=== PATIENT | female | born 1960 | race Caucasian/White ===

== ENCOUNTER 2018-03-26 11:51 | Inpatient (IN) | payer OTHER ==
[~2018-03-26] VITALS: Ht 157.5 cm; Wt 54.4 kg
--- NOTE | 2018-03-26 18:18 | NUR ---
PRE ADMISSION Pt 57 y/o female came from home. Pt alert and oriented to name, place, and time. Perrla. Skin warm and dry to touch. Respirations even and unlabored. Pt intoxicated with slurred speech noted. Pt disheveled with hair uncombed. Pt anxious and was tearful during pre-assessment. Pt observed tapping foot and with poor eye contact, occasionally staring the floor. Pt states drinks etoh, switching between wine, beer, and vodka daily for 8 months. Pt states last drink was vodka 2 shots this morning. Initial ciwa deferred as pt is intoxicated. IM=931/76 P=83 R=17 T=98.6 O2=96%@RA. Pt states has attempted twice to quit drinking etoh, but unable to maintain sobriety. Pt states her is is the one to blame for her continued alcoholism stating, " he just keeps filling the house with all these stuff (alcohol) to drink. I could never escape it!.", with episodes of crying. Explained unit rules to pt with acknowledgment. Addendum: 03/26/18 at 1842 by SKIP BAUTISTA RN additional Pt states drinks between wine, beer, and vodka depending on what's available. Pt states drinks wine 3/4 of large bottle every other day for 8 months and last time was unknown amount on 03/25/2018. Pt states drinks beer 12 pack every other day for 8 months and last time was a 12 pack on 03/25/2018. Pt states drinks vodka 3-4 shots weekly for 8 months and last time was 2 shots this morning 03/26/2018. Pt states first drink was when she was 18 y/o.
--- NOTE | 2018-03-26 18:49 | NUR ---
ADMISSION NOTE: Patient is a 57 year old female admitted to [facility] on 03/26/2018 at 1949 for ETOH (Red/White Wine, Beer, Vodka) withdrawal. Patient is ambulatory with steady gait. The patient is alert and oriented x4. Speech is soft and clear. Height: 5'2". Weight: 120 lb by standing scale. VS: T: 98.6, BP: 113/76, HR 83, RR 17, RA O2SAT: 96%. Headache: "6". Patient noted to be disheveled, unkempt and with uncombed hair. Patient appears intoxicated. Patient reports NKA, is on Regular Diet, Full Code, is on Fall and Seizures Precautions. Patient denies history of withdrawal-induced seizures. PMH: Anxiety, Depression. The patient denies SI/HI. Skin check done, noted intact, warm, and dry to touch. Patient reports, "I don't have Primary Care Physician and Psychiatrist. UDS and Urine HCG, Qual test provided. Blood Labs were drawn. Respirations even and unlabored. Lung Sounds are clear throughout. Patient denies SOB, cough, and chest pain. Bowel sounds active in all four quadrants. Patient stated that she starting using Alcohol since every day since 1977. She reports, that "I have longest sober period 12 years: [id number]. Then, I have been 6 months sober in 2016 , and now I am drinking every day during last 8 months". SUBSTANCE USING HISTORY: 1. BEER 12 CANS/DAILY. LAST USED 12 CANS ON 03/25/2018. 2. WINE 3/4 BOTTLE/DAILY. LAST USED 3/4 BOTTLE OF RED WINE ON 03/25/2018. 3. VODKA 3-4 SHOTS/WEEKLY. LAST USED 2 SHOTS ON 03/25/2018 AT AM. TREATMENT/DETOX HISTORY: 1. "[facility]", [place], RESIDENTIAL ON 01/2017 FOR 30 DAYS. THE PATIENT REPORTS 6 MONTHS WAS ABLE TO STAY SOBER. 2. "[facility]", [place], RESIDENTIAL FOR 21 DAYS ON 1989. THE PATIENT REPORTS 12 YEARS WAS ABLE TO STAY SOBER. THE PATIENT REPORTS BARRIERS FOR GETTING/STAYING SOBER : "MY . BECAUSE I AM AN ALCOHOLIC". Patient verbalized, " I want to be sober, and it will be different this time because I am stronger this time, and I just don't want it anymore ". Patient would like to continue to residential treatment after detox. Patient also reports "I never smoking". Patient not brought her home medications. Education for smoking cessation provided to patient. Patient oriented on the rules and policies of the unit, directed to his room and instructed on the use of the call light. Encouraged fluids as tolerated. Encouraged to attend activities groups in the morning. All needs met. Safety measures on place. Call light within reach, bed locked in lowest position, padded rails up bilaterally. Will continue to monitor closely.
[2018-03-26 19:00] VITALS: BP 113/76
[2018-03-26 20:00] VITALS: BP 108/68
[2018-03-26] MEDS ORDERED: ACETAMINOPHEN 325 MG TABLET PO PRN (20:15)
[2018-03-26] MEDS ORDERED: LOPERAMIDE HCL 2 MG CAPSULE PO PRN ×2 (20:15)
[2018-03-26] MEDS ORDERED: THIAMINE HCL 200 MG/2 ML VIAL IM ONE (20:15)
[2018-03-26] MEDS ORDERED: MAGNESIUM HYDROXIDE 30 ML LIQUID UDC PO PRN (20:15)
[2018-03-26] MEDS ORDERED: LORAZEPAM 2 MG/1 ML VIAL IM PRN (20:15)
[2018-03-26] MEDS ORDERED: MAG HYDROX/AL HYDROX/SIMETH 30 ML LIQUID UDC PO PRN (20:15)
[2018-03-26] MEDS ORDERED: LORAZEPAM 1 MG TABLET PO PRN (20:15)
[2018-03-26] MEDS ORDERED: HYDROXYZINE PAMOATE 25 MG CAPSULE PO PRN (20:15)
[2018-03-26] MEDS ORDERED: ONDANSETRON 4 MG/2 ML VIAL IM PRN (20:15)
[2018-03-26 20:47] LABS: *URINE HCG, QUAL NEGATIVE (NEGATIVE)
[2018-03-26 21:07] LABS: *AMPHETAMINE, URINE NEGATIVE (NEGATIVE); *BARBITURATE, URINE NEGATIVE (NEGATIVE); *CANNABINOID, URINE NEGATIVE (NEGATIVE); *COCCAINE, URINE NEGATIVE (NEGATIVE); *OPIATE, URINE NEGATIVE (NEGATIVE); *PHENCYCLIDINE SCREEN,URINE NEGATIVE (NEGATIVE)
[2018-03-26 21:26] LABS: BASOPHILS % (AUTO) 0.5 % (0.0-2.0); EOSINOPHILS # (AUTO) 0.1 K/uL (0.0-0.7); EOSINOPHILS % (AUTO) 1.3 % (0.0-7.0); HEMATOCRIT 39.7 % (31.2-41.9); HEMOGLOBIN 13.6 g/dL (10.9-14.3); LYMPHOCYTES # (AUTO) 3.6 K/uL (20.0-40.0); MEAN CORPUSCULAR HEMOGLOBIN 32.8 uug (24.7-32.8); MEAN CORPUSCULAR HGB CONC 34 g/dL (32.3-35.6); MEAN CORPUSCULAR VOLUME 95.7 fL (75.5-95.3); MONOCYTES # (AUTO) 0.4 K/uL (2.0-10.0); MONOCYTES % (AUTO) 6.5 % (0.0-11.0); NEUTROPHILS # (AUTO) 2.1 K/uL (1.8-8.9); NEUTROPHILS % (AUTO) 33.7 % (38.5-71.5); PLATELET COUNT (AUTO) 263 K/uL (179-408); RED BLOOD CELL COUNT(AUTO) 4.14 MIL/uL (3.63-4.92); WHITE BLOOD COUNT (AUTO) 6.1 K/uL (3.8-11.8)
[2018-03-26 21:44] LABS: BILIRUBIN,TOTAL 0.5 mg/dL (0.2-1.0); CREATININE 0.8 mg/dL (0.6-1.3)
[2018-03-26 21:54] LABS: THYROID STIMULATING HORMONE 2.468 mIU/mL (0.358-3.740)
[2018-03-27] VITALS: BP 95/58
[2018-03-27] MEDS: LORAZEPAM 1 MG TABLET PO PRN ×2 (03:30→09:30)
--- NOTE | 2018-03-27 03:30 | NUR ---
PRN ATIVAN 2 MG PO AND PRN ZOFRAN 4 MG SL ADMINISTRATION. PRN Ativan 2 mg PO administrated as ordered for CIWA=18, and PRN Zofran 4mg SL administrated as ordered for nausea. Patient tolerated well. Safe and calm environment with minimized noises was provided. All needs met. Safety measures in the place: Call light within reach, bed locked in the lowest position, padded rails up x2. Will continue to monitor closely.
[2018-03-27] MEDS: ONDANSETRON ODT 4 MG TAB.RAPDIS SL PRN ×3 (03:31→15:10)
[2018-03-27 04:00] VITALS: BP 127/81
--- NOTE | 2018-03-27 04:31 | NUR ---
PRN ATIVAN 2 MG PO AND PRN ZOFRAN SL RE-ASSESSMENT. Patient is sleeping. RR:16. Respirations are even and unlabored. PRN Ativan 2 mg PO administrated as ordered for CIWA=18 at 0330, and PRN Zofran 4 mg SL administrated for nausea at 0330 was effective. Safe and calm environment with minimized noises was provided. All needs met. Safety measures on place. Call light within reach, bed in lowest position locked, padded rails up bilaterally. Will continue to monitor closely.
--- NOTE | 2018-03-27 07:18 | NUR ---
END OF SHIFT NOTE: Endorsed patient is a 57 year old female admitted to [facility] on 03/26/2018 at 1949 for ETOH (Red/White Wine, Beer, Vodka) withdrawal. 5 day Ativan Taper ordered. Patient is ambulatory with steady gait. Patient is alert and oriented x4. Speech is soft and clear. Patient reports NKA, is on Regular Diet, Full Code, is on Fall and Seizures Precautions. Patient denies history of withdrawal-induced seizures. PMH: Anxiety, Depression. The patient denies SI/HI. She appears easy overwhelmed, worry, and sad. The mood and affect are labile and anxious. Emotional support and reassuring provided. Encouraged to expresses her feelings. Relaxation Techniques: Deep breathing exercises, guided imagery, and visualization. Patient noted to be disheveled, unkempt and with uncombed hair. First withdrawal S/S noted at 0330. Withdrawal symptoms will be closely monitored. CIWA=18 at 0330: The patient presented with anxiety, agitation, nervousness, nausea, pins and needles sensations, very mild headache, generalized body aches, tremors, sweating, body aches, abdominal cramps, nasal congestion, yawning, restlessness, and fatigue. PRN Ativan 2 mg PO administrated as ordered for CIWA=18 at 0330, and PRN Zofran 4 mg SL administrated for nausea at 0330, and were effective. Encouraged to increase oral fluids as tolerated. Encourage to attended groups activities. Calm and safety environment with minimized noises was provided. Patient slept 5 hours, intake 2,250 ml, voided x2, stool x2. All needs met. Safe and calm environment with minimized noises was provided. Safety measures in the place: Call light within reach, bed in the lowest position and locked, padded rails up x2. Patient endorsed to day shift nurse.
--- NOTE | 2018-03-27 07:30 | NUR ---
START OF SHIFT Pt 57 y/o female admitted for etoh withdrawal. Pt received in room awake. Pt alert and oriented to name, place, and time. Perrla. Skin warm and moist to touch. Respirations even and unlabored. Bilateral hand tremors noted when resting. Pt anxious and restless this morning, not able to lay still in bed. Pt appears disheveled. Empty water bottles scattered throughout the room. Encouraged to maintain hygiene. It was reported that pt slept for 5 hours last night. Last reported ciwa=18 @ 0330. Pt is on a 5 day ativan taper and is on day 1. It was reported that pt received ativan 2mg po prn per MD order for ciwa=18 and zofran sl prn per MD order for c/o nausea. Bed on lowest position with siderails x2 up for safety. Call light within reach.
[2018-03-27 08:00] VITALS: BP 111/75
--- NOTE | 2018-03-27 08:00 | NUR ---
CIWA ASSESSMENT ciwa=18. Pt in room on bed with hands by side resting and is tremulous. Pt anxious and restless not able to lay still in bed. Pt with tearful episode. Pt also with c/o nausea and stomach cramps.
[2018-03-27] MEDS: LORAZEPAM 1 MG TABLET PO SCH ×4 (08:10→20:23)
[2018-03-27] MEDS: FOLIC ACID 1 MG TABLET PO SCH (08:11)
[2018-03-27] MEDS: DICYCLOMINE HCL 20 MG TABLET PO PRN (08:11)
[2018-03-27] MEDS: MULTIVITAMINS,THERAPEUTIC TABLET PO SCH (08:11)
[2018-03-27] MEDS: THIAMINE HCL 100 MG TABLET PO SCH (08:11)
[2018-03-27] MEDS ORDERED: 5 DAY TAPER OF LORAZEPAM -SERENITY PROTOCOL PO PRN (09:00)
[2018-03-27] MEDS ORDERED: TUBERCULIN,PURIF.PROT.DERIV. 5 TU/0.1 ML TEST ID ONE (09:00)
--- NOTE | 2018-03-27 09:31 | NUR ---
PRN / ZOFRAN ATIVAN Pt wth ciwa= 13. Pt nauseated. Bilateral hand tremors noted. Pt restless and anxious, not able to lay still in bed. Ativan 1mg po prn per MD order given and tolerated well. Zofran SL prn per MD order given and tolerated well.
--- NOTE | 2018-03-27 10:31 | NUR ---
EVAL ATIVAN/ ZOFRAN PRN Pt with ciwa = 6. Pt states feels less anxious. Bilateral hand tremors present but less severity. Pt denies nausea at this time.
[2018-03-27 12:00] VITALS: BP 118/72
--- NOTE | 2018-03-27 12:00 | NUR ---
ZACK EASTMAN aware of lipase =537. Addendum: 03/27/18 at 1444 by SKIP BAUTISTA RN additional ordered labs lipase and amylase in am and diet changed to full liquid diet.
--- NOTE | 2018-03-27 12:00 | NUR ---
CIWA ASSESSMENT ciwa=16. Pt observed in bed in room. Pt restless not able to lay still. Bilateral hand tremors while hands resting on side. Pt states she is sweating. Pt with c/o nausea. Pt irritable with pressured speech noted.
[2018-03-27] MEDS: CLONIDINE HCL 0.1 MG TABLET PO PRN (15:10)
--- NOTE | 2018-03-27 15:10 | NUR ---
CIWA/Zofran 4mg ODT/Clonidine 0.1mg/Ativan 2 mg PRN given/MD Communication: Patient's CIWA 26, she verbalizes "I don't feel right." VS 118/72, Pulse 92. She verbalizes anxiety, appears agitated, tremulous and diaphoretic. She also states that she is nauseated. Denies AV hallucinations. No S/I or H/I noted. Medicated patient with Zofran 4 mg ODT, Ativan 2 mg PO and Clonidine 0.1mg PO as ordered. Will monitor for effectiveness. Addendum: 03/27/18 at 1516 by ALEJO KRAMER LVN Notified Dr. Ceballos who is in the unit. Per , continue current taper and use PRNs as ordered.
[2018-03-27 16:00] VITALS: BP 133/85
--- NOTE | 2018-03-27 16:10 | NUR ---
CIWA ASSESSMENT ciwa=18. Pt observed pacing in hallways. Pt restless not able to stay still. Bilateral hand tremors while hands resting on side. Pt observed with bead of perspiration on forehead. Pt irritable and easily agitated with pressured speech noted.
--- NOTE | 2018-03-27 16:10 | NUR ---
BARBER LINDSEY/ NELLIE/ MADELAINE ciwa=18. Pt appears restless in bed. Pt still c/o sweats. Bilateral hand tremors noted. Pt diaphoretic. Pt denies any nausea at this time. Pt states, " it comes and goes, like in waves.". Pt states feels less anxious, but still is anxious. Addendum: 03/27/18 at 1718 by SKIP BAUTISTA RN additional Also ciwa assessment.
--- NOTE | 2018-03-27 17:53 | NUR ---
ENDORSEMENT Pt endorsed to nurse. All information given.
--- NOTE | 2018-03-27 17:54 | NUR ---
Received endorsement from RN. Pt appears to be asleep and stable. Resp even and unlabored. Will continue to monitor for withdrawal symptoms. All safety measures in place.
--- NOTE | 2018-03-27 18:37 | NUR ---
End of shift Pt 57 y/o female admitted for ETOH withdrawal. Pt alert and oriented to name, place, and time. Perrla. Skin warm and moist to touch. Respirations even and unlabored. Bilateral hand tremors noted. Pt appears disheveled. Empty water bottles scattered throughout the room. Encouraged to maintain hygiene. Pt with periods of anxiety throughout the morning. Pt also with tearful episodes this morning. Pt observed isolative to room throughout the day. Pt with low motivation for self care. Pt did not attend group activity today. Pt was seen by MD today. Pt medication compliant. Pt is on a 5 day ativan taper and is on day 1. Last CIWA=18 @1600. Pt received ativan 1 mg PO PRN per MD order for CIWA= 16 this morning. Pt received ativan 2 mg PO PRN per MD order for CIWA= 26 this afternoon. Pt also received Zofran SL PRN per MD order given twice for c/o nausea today. All safety measures in place. Bed on lowest position with side rails x2 up for safety. Call light within reach. Will continue to monitor for withdrawals. Will endorse to PM shift.
--- NOTE | 2018-03-27 19:30 | NUR ---
START OF SHIFT Received 57 year old female patient admitted on 03/26/18 for ETOH withdrawal. Pt is alert and oriented x4. She presents with anxiety, flushed face, clammy skin, sensitivity to light and sound, nausea and sweats. She is receiving a 5 day Ativan taper and is tolerating well. Per endorsement, her amylase and lipase levels were increased. is aware. Pt placed on full liquid diet and is tolerating well. She is scheduled to have labs drawn again in the morning. She received PRN Ativan x2. Last CIWA:18 at 1600. Breathing is even and unlabored, safety measures in place. Will monitor. Addendum: 03/27/18 at 2030 by FLO YEUNG RN Pt also presents with tremors and complains of chills/sweats.
[2018-03-27 20:00] VITALS: BP 120/79
--- NOTE | 2018-03-27 20:00 | NUR ---
CIWA ASSESSMENT Pt complains of anxiety, restlessness, flushed face, clammy skin, nausea, tremors, sensitivity to light and sound and irritability. CIWA:17. Will continue to monitor.
[2018-03-27] MEDS: diphenhydrAMINE 50 MG CAPSULE PO PRN (20:32)
--- NOTE | 2018-03-27 20:32 | NUR ---
PRN ZOFRAN IM, BENADRYL Pt complains of nausea and reports that Zofran ODT that was administered during day shift was only somewhat effective. Pt also complains of difficult falling asleep. PRN Zofran IM and Benadryl administered as ordered. Safety measures in place. Will monitor effectiveness.
--- NOTE | 2018-03-27 21:02 | NUR ---
PRN ZOFRAN IM REASSESSMENT PRN medication effective. Pt lying in bed with eyes closed noted to be asleep. no facial grimacing noted. Breathing is even and unlabored, safety measures in place. Will continue to monitor.
--- NOTE | 2018-03-27 21:32 | NUR ---
PRN BENADRYL REASSESSMENT PRN medication is effective. Pt is lying in bed with eyes closed noted to be asleep. Breathing is even and unlabored, safety measures in place. Will continue to monitor.
--- NOTE | 2018-03-28 | NUR ---
VITALS REFUSED, CIWA DEFERRED 0000 vitals refused at beginning of shift. Pt stated " I'm not feeling well, if I'm sleeping don't wake me up. It's hard for me to go back to sleep." CIWA deferred. Pt is lying in bed with eyes closed noted to be asleep. Breathing is even and unlabored, safety measures in place. Will monitor.
--- NOTE | 2018-03-28 04:09 | NUR ---
VITALS REFUSED, CARROLLWA DEFERRED 0400 vitals were refused at beginning of shift. Pt stated " I'm not feeling well, if I'm sleeping don't wake me up. It's hard for me to go back to sleep." CARROLLWA deferred.Pt lying in bed with eyes closed noted to be asleep. Breathing is even and unlabored, safety measures in place. Will continue to monitor.
--- NOTE | 2018-03-28 07:04 | NUR ---
END OF SHIFT Pt is a 57 year old female patient admitted on 03/26/18 for ETOH withdrawal. Pt remains alert and oriented x4. She presented with anxiety, flushed face, clammy skin, sensitivity to light and sound, nausea, tremors and sweats during the shift. She continues on a 5 day Ativan taper and is tolerating well. Pt continues on full liquid diet d/t increased level of amylase and lipase. At 2031 she received PRN Zofran IM and Benadryl. She slept a total of 11 hrs, Intake: 500mL, Void: x2, BM:0, CIWA:17 at 1999. Breathing is even and unlabored, safety measures in place. Endorsed to AM shift.
[2018-03-28 07:54] LABS: AMYLASE 76 U/L (25-115); LIPASE 346 U/L (73-393)
[2018-03-28 08:00] VITALS: BP 125/75
--- NOTE | 2018-03-28 08:00 | NUR ---
CIWA 19 PT IS LAYING IN BED, PRESENTS FACIAL FLUSHING, RESTLESSNESS, MODERATE ANXIETY AND AGITATION, IRRITABILITY, HOT/COLD FLASHES, NAUSEA, DIAPHORESIS, CLAMMY SKIN, C/O HEADACHE BUT REFUSING IBUPROFEN, C/O SENSITIVITY TO LIGHT, AND GROSS AND FINE TREMORS SEEN. PT REPORTS HAVING INTERMITTENT SLEEP D/T FEELING RESTLESSNESS.
--- NOTE | 2018-03-28 08:00 | NUR ---
START OF SHIFT PT IS A 57 Y/O F ADMITTED ON 03/26/18 FOR MEDICALLY SUPERVISED ETOH WITHDRAWAL.PT CONTINUES ON A 5 DAY ATIVAN TAPER, TODAY BEING THE SECOND DAY AND TOLERATING WELL. RECEIVED PT A/OX4, LAYING IN BED, AND HAS A FLAT AFFECT, RESPIRATIONS EVEN AND UNLABORED. PT PRESENTS FACIAL FLUSHING, RESTLESSNESS, ANXIETY, AGITATION, IRRITABILITY, HOT/COLD FLASHES, NAUSEA, DIAPHORESIS, CLAMMY SKIN, HEADACHES, SENSITIVITY TO LIGHT, GROSS AND FINE TREMORS SEEN AND PT C/O INTERMITTENT SLEEP. PT CONTINUES ON A FULL LIQUID DIET FOR INCREASED AMYLASE AND LIPASE. PT HAS BEEN GIVEN ZOFRAN IM AND BENADRYL PRNS LAST SHIFT. LAST CIWA 17 @1999. ENCOURAGED PT INCREASED FLUIDS TOLERATED FOR HYDRATION. ENCOURAGED PT TO VERBALIZED FEELINGS ABOUT SITUATION AND ATTEND GROUPS TO FACILITATE IN COPING SKILLS AND MAINTAIN SOBRIETY. SIDE RAILS UPX2, BED IN LOW POSITION. CALL LIGHT WITHIN REACH. SAFETY MEASURES IN PLACE. WILL CONTINUE TO MONITOR.
[2018-03-28] MEDS: LORAZEPAM 1 MG TABLET PO SCH ×3 (09:00→21:01)
[2018-03-28] MEDS: FOLIC ACID 1 MG TABLET PO SCH (09:00)
[2018-03-28] MEDS: MULTIVITAMINS,THERAPEUTIC TABLET PO SCH (09:01)
[2018-03-28] MEDS: THIAMINE HCL 100 MG TABLET PO SCH (09:01)
[2018-03-28] MEDS: ONDANSETRON ODT 4 MG TAB.RAPDIS SL PRN ×2 (09:06→21:02)
--- NOTE | 2018-03-28 09:06 | NUR ---
PRN ZOFRAN 4 MG SL PRN GIVEN FOR C/O NAUSEA. WILL MONITOR AND REASSESS.
--- NOTE | 2018-03-28 09:36 | NUR ---
REASSESSMENT PT REPORTS ZOFRAN HAS DECREASED HER NAUSEA. PT APPEARS MORE RELAXED, LAYING IN BED AT THIS TIME. SAFETY MEASURES IN PLACE, WILL CONTINUE TO MONITOR.
--- NOTE | 2018-03-28 11:00 | NUR ---
DIET CHANGED TO REGULAR DIET WITH NO FAT SPECIFICATION ORDERED BY Addendum: 03/28/18 at 1629 by HELENA ORDAZ RN GEREMIAS WHATLEY, FRIED FOOD
--- NOTE | 2018-03-28 12:04 | NUR ---
CIWA ASSESSMENT CIWA OF 17 @1200. PT HAS A FLAT AFFECT, WORRIED AND DEPRESSIVE MOOD. PT PRESENTS ANXIETY, AGITATION, RESTLESSNESS, IRRITABILITY, GROSS TREMORS, FACIAL FLUSHING, LIGHT SENSITIVITY, NAUSEA, INCREASED EMOTIONAL AMPLITUDE; PT BURST INTO TEARS WHEN TALKING ABOUT HOW SHE IS FEELING AT THE MOMENT; PT STATES, "I CANNOT TAKE A SHOWER RIGHT NOW.. I EVEN HAVE A HARD TIME GOING TO THE BATHROOM. HOPEFULLY I WILL BE ABLE TO GO TO THE BATHROOM TOMORROW." REASSURED PT THAT SHE IS NOT EXPECTED TO GO TO GROUP IF SHE IS NOT FEELING WELL ENOUGH. ENCOURAGED PT TO CONSUME FOOD AND INCREASE FLUIDS TOLERATED FOR NUTRITION AND HYDRATION. SAFETY MEASURES IN PLACE, WILL CONTINUE TO MONITOR. Addendum: 03/28/18 at 1501 by HELENA ORDAZ RN CORRECTION: PT STATES, "HOPEFULLY I WILL BE ABLE TO TAKE A SHOWER TOMORROW," INSTEAD OF "BATHROOM"
[2018-03-28 12:15] VITALS: BP 120/93
--- NOTE | 2018-03-28 16:10 | NUR ---
CIWA ASSESSMENT CIWA OF 17. PT HAS NOT EATEN HER LUNCH AND HAS BEEN ISOLATIVE IN ROOM IN BED. PT CONTINUES TO HAVE ANXIETY, AGITATION, RESTLESSNESS, IRRITABILITY, GROSS TREMORS, FACIAL FLUSHING, LIGHT SENSITIVITY, NAUSEA, INCREASED EMOTIONAL AMPLITUDE. PT IS BEING SEEN BY A THERAPIST. SAFETY MEASURES IN PLACE, WILL CONTINUE TO CLOSELY MONITOR AND PROVIDE SUPPORT..
[2018-03-28 16:30] VITALS: BP 118/84
--- NOTE | 2018-03-28 18:48 | NUR ---
END OF SHIFT PT HAS BEEN ISOLATIVE IN ROOM AND IN BED THROUGHOUT SHIFT. PT REPORTS HAVING A GENERALIZED FEELING OF NOT BEING WELL AND FATIGUE, C/O NO APPETITE WITH INCREASED EMOTIONAL AMPLITUDE. PT HAS BEEN SEEN BY THERAPIST. MD CHANGED ORDER FROM LIQUID DIET TO REGULAR WITH NO FAT SPECIFICATION D/T LIPASE LEVEL. PT ATE 100% BREAKFAST BUT REFUSED LUNCH AND DINNER; PT STATES HE HAS NO APPETITE AT THIS TIME. FLUID INTAKE 1355ML, VOIDED X5, BM 0. LAST CIWA 17 @1600. ZOFRAN 4MG SL PRN GIVEN DURING SHIFT. SAFETY MEASURES IN PLACE. WILL GIVE ENDORSEMENT TO TANNING DRUM OPERATOR NURSE.
--- NOTE | 2018-03-28 19:30 | NUR ---
Start of Shift Endorsement received from day nurse.Pt admitted 03/26/18 for medically managed withdrawal from ETOH is on day 2 of a 5 day Ativan taper. Pt presents with a PPH of anxiety and depression. Pt found in room, arousable to voice. Pt is disheveled, with uncombed hair and poor oral hygiene. Pt appears anxious, sad, depressed and worried. Pt easily overwhelmed, emotional/labile. Per report pt has been isolative to room. Pt reports generalized feeling of "unwell". Zofran 4mg SL given during day shift for nausea, pt says stomach "still feels funny". 10% of dinner consumed (pt on a "no fat diet", but potato chips on bedside table. Pt denies H/A, head fullness or band around head, describes her head as feeling "cloggy". Pt inquiring about labs drawn, labs discussed, lipase discussed in length. Pt questioned about last 8 months drinking, pt stating how many changes she's been through, tearing up/crying as she lists" 1. Moving from [place], [place] to [place] 2. Marrying her alcoholic after trying to help him stay sober for years. 3. 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 Pt states she "has been sent to detox by her employer". Pt states plans to attend 30 day rehab [facility] in [place]. Center looked up and discussed. Pt has accrued years of sobriety in past, 12 years being greatest time period. 2 prior detox's/rehabs over last 18 years. Barrier to staying sober are job (pt often alone in different areas, hotel room, describes coworkers as a "drinking group", and marrying her active alcoholic , who is retired and unable to stay sober. Pt hopes her detox/rehab will influence . Coping skills, S/Sx's of w/d discussed. Full safety precautions remain in place, with bed locked and in lowest position, siderails up x 2, call ordaz within reach, and frequent rounding. Will monitor for duration of shift, monitoring for all S/Sx's distress or w/d.
[2018-03-28 20:00] VITALS: BP 133/82
--- NOTE | 2018-03-28 20:00 | NUR ---
1999 COWS COWS score increased of 5 from 1600. N/V remains same at 2, will administer Zofran. Tremors decreased from 4 to 3. Paroxysmal sweats increased from 3 to 4. Pt c/o and forehead moist to touch. Anxiety increased from 4 to 5. Pt c/o and obviously nervous/emotional. Agitation increased from 2 to 4, pt frequently shifting, unable to sit still, hand movements, changing facial expression. Tactile H/A increased from 0 to 1. Pt denies but observed frequently rubbing arms/face. Audio H/A remain at 0. Pt denies Visual H/A remain at 1. Pt denies but remains in darkened room, jimenez eyes to light when door open H/A, fullness, or head "band" increased from 1 to 2. Pt c/o head feeling "cloggy". A&O unchanged at 0. Pt oriented and able to do additions, aware of person/place/situation/time.
[2018-03-28] MEDS: diphenhydrAMINE 50 MG CAPSULE PO PRN (21:01)
--- NOTE | 2018-03-28 21:01 | NUR ---
PRN Med Benedryl 50mg PO given for insomnia. Will monitor and reassess in 1 hour
--- NOTE | 2018-03-28 21:02 | NUR ---
Zofran 4mg SL given for c/o nausea w/o emesis. Will monitor and reassess in 1 hour
--- NOTE | 2018-03-28 22:01 | NUR ---
PRN Reassessment Benedryl 50mg PO given 1 hour prior. At present pt is sleeping, arousable to voice. Med effective
--- NOTE | 2018-03-28 22:02 | NUR ---
PRN Reassessment Zofran 4mg SL given 1 hour prior for c/o nausea w/o emesis. At present pt reports a decrease in nausea. Med effective. Will continue to monitor for shift promptly attending to all s/sx's distress or w/d.
[2018-03-29] VITALS: BP_SYST 119; BP_SYST 133; BP_DIAS 82; BP_DIAS 89
--- NOTE | 2018-03-29 | NUR ---
VS's/CIWA Midnight VS's obtained/stable. CIWA deferred r/t pt sleeping/refused. Will continue to monitor for any s/sx's distress or w/d and attend promptly.
[2018-03-29 04:00] VITALS: BP 117/78
[2018-03-29] MEDS: IBUPROFEN 600 MG TABLET PO PRN (05:45)
--- NOTE | 2018-03-29 05:45 | NUR ---
CIWA reduced to 17, anxiety, agitation, tremors, sweats decreased, increased for H/A, described as 5/10, medicated with Motrin. Will continue to monitor, reassessing in 1 hour, promptly attending to all s/sx's distress or w/d
--- NOTE | 2018-03-29 05:45 | NUR ---
PRN Med Motrin 600mg PO given for H/A, 01/28. Will continue to monitor, reassessing in 1 hour, and attending promptly to all pt needs
--- NOTE | 2018-03-29 06:45 | NUR ---
PRN Reassessment Motrin 600mg PO given 1 hour prior for H/A, 01/28. Currently pt is sleeping, RR 14, even and nonlabored, med effective
--- NOTE | 2018-03-29 07:14 | NUR ---
End of Shift Endorsement given to day nurse. Pt admitted 03/26/18 for medically managed withdrawal from ETOH is on day 3 of a 5 day Ativan taper. Pt presents with a PPH of anxiety and depression. Pt listed as a full code, with NKA's and on a "no fat" diet. Pt receiving Zofran for nausea and Benedryl for insomnia as PRN's in evening, Motrin for H/A 5/10 in am. Pt sleeping for 9 hours, with 1180 mls intake and 3 voids. Pt remains anxious and emotional over situation, aeb depressed, sad, withdrawn expression, feelings of low self esteem and crying over changes in last 6 months, moving, marriage. Pt encouraged to develop coping skills, discouraged from projecting. Lipase WNL's, but only 10% dinner consumed. Last CIWA 17 at 0545, with anxiety/agitation decreased but H/A increased. Safety precautions remain in place, with bed locked and in lowest position with siderails x 2 up and frequent rounding.
--- NOTE | 2018-03-29 07:30 | NUR ---
START OF SHIFT NOTE Received report from night nurse 57 year old female admitted for ETOH withdrawal and patient continues with Ativan taper tolerating well. Per endorsement patient was given PRN Benadryl, Zofran, Motrin last CI 17, slept for 9 hours. Received patient alert awake oriented x4, anxious, agitated, restless, bilateral hand tremors noted. Educated patient with plan of care and medication regimen with good verbal understanding. All safety measures in place,call light within reach. Will continues to monitor.
[2018-03-29 08:00] VITALS: BP 106/67
--- NOTE | 2018-03-29 08:00 | NUR ---
CIWA ASSESSMENT Patient is alert awake oriented x4 continues to exhibit s/s of withdrawal such as bilateral hand tremors, sweats, chills, anxious and agitated, restless, numbness, light headed CIWA score -17. Will cont to monitor.
[2018-03-29 08:30] LABS: BILIRUBIN,DIRECT 0.1 mg/dL (0.0-0.2); BILIRUBIN,TOTAL 0.6 mg/dL (0.2-1.0); TOTAL PROTEIN, SERUM 7.9 g/dL (6.4-8.2)
[2018-03-29] MEDS: LORAZEPAM 1 MG TABLET PO SCH ×4 (08:35→21:03)
[2018-03-29] MEDS: FOLIC ACID 1 MG TABLET PO SCH (08:35)
[2018-03-29] MEDS: MULTIVITAMINS,THERAPEUTIC TABLET PO SCH (08:35)
[2018-03-29] MEDS: THIAMINE HCL 100 MG TABLET PO SCH (08:35)
[2018-03-29 12:00] VITALS: BP 115/85
--- NOTE | 2018-03-29 12:00 | NUR ---
CIWA ASSESSMENT Patient is alert awake oriented x4 continues to exhibit s/s of withdrawal such as sweats, chills, anxious and agitated, body aches,stomach cramps, difficulty sitting still, light headed CIWA score -16, Will cont to monitor.
[2018-03-29] MEDS: MIRALAX 17 GM POWD.PACK PO PRN (12:10)
--- NOTE | 2018-03-29 12:10 | NUR ---
PRN MIRALAX Patient c/o constipation, patient provided with non pharmacological intervention such as prune juice with no relief. PRN Miralax 17GM was given as ordered. Will cont to monitor and reassess for effectiveness.
--- NOTE | 2018-03-29 13:10 | NUR ---
MIRALAX REASSESSMENT Patient reported no BM yet, encourage PO fluids as tolerated. Will cont to monitor.
[2018-03-29] MEDS: DICYCLOMINE HCL 20 MG TABLET PO PRN (14:16)
--- NOTE | 2018-03-29 14:16 | NUR ---
PRN BENTYL Patient c/o of stomach cramps, PRN Bentyl 20mg PO administered as ordered. Will cont to monitor and reassess for effective. Addendum: 03/29/18 at 1600 by PIETRO GARCIA LVN stomach cramps 12/29.
--- NOTE | 2018-03-29 15:16 | NUR ---
SIDDHARTHA REASSESSMENT Per patient medication was effective stomach cramps subsided to 09/30.
[2018-03-29 16:00] VITALS: BP 108/77
--- NOTE | 2018-03-29 16:00 | NUR ---
CIWA ASSESSMENT Patient is alert awake oriented x4 continues to exhibit s/s of withdrawal such as sweats, anxious and agitated, bilateral hand tremors, light headed, CIWA score -14, Will cont to monitor.
--- NOTE | 2018-03-29 19:08 | NUR ---
START OF SHIFT NOTE: Presented patient is a 57 year old female continues 5 Day Ativan Taper for Alcohol (Red/White Wine, Beer, Vodka) withdrawal. The patient tolerated well. Withdrawal symptoms will be closely monitored. The patient remains compliant with treatment, medications, and diet regime. The patient is alert and oriented x4, ambulatory, with stable gate. She is cooperative, with soft, and clear speech. The patient noted with anxious mood and liable affect. Educated to use of Relaxation Techniques: Deep breathing exercises, guided imagery, and visualization. Encouraged verbalization of feelings, fears, and anxiety. Emotional support and reassurance provided to patient. The patient noted disheveled, unkempt with uncombed hair. Encouraged to independently perform hygiene care. CIWA=14 at 1600: The patient presented with anxiety, agitation, nervousness, nausea, pins and needles sensations, very mild headache, generalized body aches, tremors, sweating, body aches, abdominal cramps, nasal congestion, yawning, restlessness, and fatigue. Encouraged to increase oral fluids as tolerated. Encourage to attended groups activities. Calm and safety environment with minimized noises was provided. All needs met. Safe and calm environment with minimized noises was provided. Safety measures in the place: Call light within reach, bed in the lowest position and locked, padded rails up x2. Patient endorsed by day shift nurse. Will continue to monitor closely.
--- NOTE | 2018-03-29 19:08 | NUR ---
END OF SHIFT NOTE Gave report to night nurse, 57 year old female admitted for ETOH withdrawal and continues with Ativan taper tolerating well. Patient presented with body aches, stomach cramps, anxiety, agitation, restless, constipation, light headed, sweats, hot cold flashes, unkempt room, labile facial expression. Patient was given scheduled medications along with PRN Bentyl and Miralax. Bentyl noted to be effective, no BM per patient will endorse to night nurse to follow up. Encourage PO fluids as tolerated. Patient rested in her room most of the shift, encourage patient to attend groups activities to learn new coping skills with good verbal understanding. All safety measures in place, call light within reach. patient endorse to night nurse in stable condition.
[2018-03-29 20:00] VITALS: BP 110/69
[2018-03-29] MEDS: diphenhydrAMINE 50 MG CAPSULE PO PRN (21:03)
--- NOTE | 2018-03-29 21:03 | NUR ---
PRN BENADRYL 50 MG 1 CAP PO ADMINISTRATION Patient c/o insomnia and asked aid. Benadryl 50 mg PO administrated PRN with full glass of water as ordered. Patient tolerated well. All needs met. Safe and calm environment with minimized noises was provided. Safety measures on place. Call light within reach, bed in lowest position locked, padded rails up bilaterally. Will continue to monitor closely.
--- NOTE | 2018-03-29 22:03 | NUR ---
RE-ASSESSMENT Patient is sleeping. RR:16. Respirations even and unlabored. Benadryl 50 mg PO administrated PRN for insomnia at 3 was effective. Safe and calm environment with minimized noises was provided. All needs met. Safety measures: Call light within reach, bed in lowest position locked, padded rails up bilaterally. Will continue to monitor closely.
--- NOTE | 2018-03-30 | NUR ---
VS REFUSED, CIWA DEFERRED VS refused, CIWA deferred at 0000 d/t pt sleeping, to assess while pt is awake as ordered. Respirations are unlabored and even. RR: 14. All needs met. Safe and calm environment with minimized noises was provided. Safety measures on place. Call light within reach, bed in lowest position locked, padded rails up bilaterally. Will continue to monitor closely.
--- NOTE | 2018-03-30 04:00 | NUR ---
VS REFUSED, CIWA DEFERRED VS refused, CIWA deferred at 0400 due to patient sleeping; to be assessed and scored while patient is awake. Respirations are even and unlabored. RR:15. Safe and calm environment provided. All needs met. Safety measures in place: Call light within reach, bed locked in lowest position, and padded bed rails up bilaterally. Will continue to monitor closely.
[2018-03-30 04:06] LABS: HEPATITIS B SURFACE AG Negative (Negative)
--- NOTE | 2018-03-30 06:51 | NUR ---
END OF SHIFT NOTE: Presented patient is a 57 year old female admitted for Alcohol(Red/White Wine, Beer, Vodka) withdrawal, continues 5 day Ativan Taper, which tolerated well. Withdrawal symptoms closely monitored. The patient is ambulatory with steady gait. She is alert and oriented x4. Speech is soft and clear. The patient denies SI/HI. She is denies history of withdrawal-induced seizures. Patient appears anxious, fearful, depressed, worry with flat affect. Encouraged to expresses her feelings. Education provided to use of Relaxation Techniques: Deep breathing exercises, guided imagery, and visualization. Educated in safety and hygiene care. Encouraged to independently perform hygiene care. CIWA=18 at 2000: The patient presented with moderate withdrawal symptoms as anxiety, agitation, nervousness, pins and needles sensations,tremors, sweating, abdominal cramps, nasal congestion, yawning, restlessness, and fatigue. VS refused, COWS deferred at 0000 and 0400 due to patient sleeping; to be assessed and scored while patient is awake. Skin remains intact, warm, and dry to touch. Encouraged to increase oral fluids as tolerated. The patient attended groups activities. Benadryl 50 mg PO administrated PRN for insomnia at 2103 was effective. Calm and safety environment with minimized noises was provided. Patient slept 9 hours, intake 855 ml, voided x3. All needs met. Safe and calm environment with minimized noises was provided. Safety measures in the place: Call light within reach, bed in the lowest position and locked, padded rails up x2. Patient endorsed to day shift nurse.
--- NOTE | 2018-03-30 07:55 | NUR ---
START OF SHIFT NOTE Received report from night nurse 57 year old female admitted for ETOH withdrawal and patient continues with Ativan taper tolerating well. Per endorsement patient was given PRN Benadryl, last CIWA 18, slept for 9 hours. Received patient asleep breathing normal no SOB noted. responsive to verbal and tactile stimuli. Skin warm and dry to touch. All safety measures in place,call light within reach. Will continues to monitor.
[2018-03-30 08:00] VITALS: BP 116/80
--- NOTE | 2018-03-30 08:00 | NUR ---
CIWA ASSESSMENT Patient is alert awake oriented x4 continues to exhibit s/s of withdrawal such as body aches, constipation, bilateral hand tremors, sweats, chills, anxious and agitated, restless, numbness, light headed CIWA score -16. Will cont to monitor.
[2018-03-30] MEDS: THIAMINE HCL 100 MG TABLET PO SCH (08:19)
[2018-03-30] MEDS: FOLIC ACID 1 MG TABLET PO SCH (08:19)
[2018-03-30] MEDS: LORAZEPAM 1 MG TABLET PO SCH ×3 (08:19→20:33)
[2018-03-30] MEDS: MULTIVITAMINS,THERAPEUTIC TABLET PO SCH (08:19)
[2018-03-30] MEDS ORDERED: MAGNESIUM CITRATE 296 ML BOTTLE PO ONE (11:15)
[2018-03-30 12:00] VITALS: BP 122/76
--- NOTE | 2018-03-30 12:00 | NUR ---
CIWA ASSESSMENT Patient is alert awake oriented x4 continues to exhibit s/s of withdrawal such stomach cramps, constipation, bilateral hand tremors, sweats, chills, hot and cold, anxious and agitated, restless, numbness, light headed CIWA score -15. Will cont to monitor.
[2018-03-30 13:08] LABS: HEPATITIS B SURFACE AB Non Reactive (.); HEPATITIS B SURFACE AG Negative (Negative)
[2018-03-30 16:00] VITALS: BP 102/62
--- NOTE | 2018-03-30 16:00 | NUR ---
CIWA ASSESSMENT Patient is alert awake oriented x4 continues to exhibit s/s of withdrawal such stomach cramps, constipation, bilateral hand tremors, sweats, chills, hot and cold, anxious and agitated, restless, patient reported no numbness, light headed CIWA score -15. Will cont to monitor.
--- NOTE | 2018-03-30 19:02 | NUR ---
END OF SHIFT NOTE Gave report to night nurse, 57 year old female admitted for ETOH withdrawal and continues with Ativan taper tolerating well. Patient continues to exhibit light leaded, anxiety, agitation, restless, constipation, labile facial expression, anhedonia, unkempt room,unwashed/uncombed hair, diaphoretic, worried, abdominal cramps, patient was given scheduled medications. Patient was seen by Dr. Ceballos with new order to administered magnesium citrate for constipation, medication was given as ordered and it was effective patient reported x1 BM. Encourage PO fluids as tolerated. Last CIWA score was 15. Encourage patient to attend groups activities to learn new coping skills. Encourage patient to use call light if light headed increased to prevent any fall. Patient verbalized understanding. All safety measures in place, call light within reach. Patient endorse to night nurse in stable condition.
--- NOTE | 2018-03-30 19:05 | NUR ---
START OF SHIFT NOTE: Endorsed patient is a 28 year old female admitted for Alcohol (Vodka, Beer, and Red/White Wine) withdrawal. She is on continues 5 day Ativan taper. Patent reports NKA, is on Full Code, Regular Diet, is on Fall and Seizures Precautions. Patient denies History of withdrawal-induced seizures. Patient denies SI/HI. Patient is alert and oriented x4 with stable gait. She is appears sad and worry with poor eye contact, and flat affect. Patient 's c/o feelings of easily overwhelmed, increased anxiety, and irritability. She expressed her feelings as," I am easily irritated, and have restlessness and fatigue". Emotional support and reassuring provided. Encouraged expressed his feelings. Last CIWA=15 @1600 per outgoing day shift nurse report: The patient presented with moderate withdrawal symptoms of anxiety, agitation, nervousness, abdominal cramps, tremors, sweating, restlessness and fatigue. Patient remains compliant with treatment, medications and diet regime. Encouraged to fluid intake as tolerated. Encouraged to attended groups activities. All needs met. Safety measures: Call light within reach, bed is locked in lowest position, padded bed rails up bilaterally. Patient endorsed by day shift nurse. Report received. Will continue to monitor closely.
[2018-03-30 20:00] VITALS: BP 116/80
[2018-03-30] MEDS: diphenhydrAMINE 50 MG CAPSULE PO PRN (20:33)
--- NOTE | 2018-03-30 20:33 | NUR ---
PRN BENADRYL 50 MG PO ADMINISTRATION. The patient c/o insomnia and asked aid. PRN Benadryl 50 mg PO administrated with full glass of water as ordered. The patient tolerated well. Safe and calm environment provided. All needs met. Safety measures: Call light within reach, bed locked in lowest position, and padded bed rails up x2. Will continue to monitor closely.
--- NOTE | 2018-03-30 21:33 | NUR ---
PRN BENADRYL RE-ASSESSMENT. The patient is sleeping. RR:15. Respirations are unlabored and even. PRN Benadryl PO administrated for insomnia at 2032 was effective. Safe and calm environment provided. All needs met. Safety measures: Call light within reach, bed locked in lowest position, and padded bed rails up x2. Will continue to monitor closely.
--- NOTE | 2018-03-31 | NUR ---
VS REFUSED. CIWA DEFERRED VS refused. CIWA deferred due to patient sleeping, and to be assessed when the patient is awake. RR:14. Respirations are unlabored and even. Safe and calm environment provided. All needs met. Safety measures: Call light within reach, bed locked in lowest position, and padded bed rails up x2. Will continue to monitor closely.
--- NOTE | 2018-03-31 04:00 | NUR ---
VS REFUSED, CIWA DEFERRED VS refused, CIWA deferred at 0400 due to patient sleeping; to be assessed and scored while patient is awake. Respirations are even and unlabored. RR:16. All needs met. Safety measures in place: Call light within reach, bed locked in low position, padded side rails up x2. Will continue to monitor closely.
--- NOTE | 2018-03-31 06:51 | NUR ---
END OF SHIFT NOTE Presented 57 year old patient continues 5 day Ativan taper for Alcohol (Vodka, Red/White Wine, Beer) withdrawal. The patient tolerated well. She is remains compliant with treatment, medications, and diet regime. Patient is alert and oriented x4 with steady gait. She is cooperative, with soft and clear speech. Patient appears sad, worry, with liable affect, and anxious mood. The patient expresses feelings of nervousness and irritability. Emotional support provided, and patient 's reassuring. Patient educated in safety and hygiene care. Encouraged to independently perform hygiene care. Withdrawal symptoms was closely monitored. The most recent CIWA=10 @20:00: Patient c/o anxiety, agitation, irritability, nervousness, stomach cramps, tremors, sweating, and restlessness. VS refused, CIWA deferred at 0000 and 0400 due to patient sleeping; to be assessed and scored while patient is awake. Respirations are unlabored and even. Patient denies SOB, chest pain, and cough. Skin is intact, warm and dry to touch. PRN Benadryl 50 mg PO administrated for insomnia at 2032. Safe and calm environment with minimized noises was provided. Patient slept 8 hours, intake 1,300ml, voided x3, stool x1. All needs met. Safety measures in the place: Call light within reach, bed in the lowest position and locked, padded rails up x2. Patient endorsed to day shift nurse, report given.
--- NOTE | 2018-03-31 07:35 | NUR ---
START OF SHIFT PT IS A 57 Y/O F ADMITTED ON 03/26/18 FOR MEDICALLY SUPERVISED ETOH WITHDRAWAL. PT CONTINUES ON A 5 DAY ATIVAN TAPER, TODAY BEING THE FIFTH DAY AND TOLERATING WELL. RECEIVED PT A/OX4, LAYING IN BED, HAS A FLAT AFFECT, RESPIRATIONS EVEN AND UNLABORED. PT PRESENTS FACIAL FLUSHING, TREMORS, RESTLESSNESS, ANXIETY, AGITATION, IRRITABILITY, HOT/COLD FLASHES, HEADHACHE, DIAPHORESIS, CLAMMY SKIN, INTERMITTENT CHILLS, SENSITIVITY TO LIGHT. PT REPORTS MEDS HAS BEEN EFFECTIVE IN S/S OF WITHDRAWAL. PT HAS BEEN GIVEN BENADRYL PRN LAST SHIFT. LAST CIWA 10 @1999. SIDE RAILS UPX2, BED IN LOW POSITION. CALL LIGHT WITHIN REACH. SAFETY MEASURES IN PLACE. WILL CONTINUE TO MONITOR.
--- NOTE | 2018-03-31 08:00 | NUR ---
CIWA ASSESSMENT 0800 CIWA 16. PT IS A/OX4, LAYING IN BED, HAS A FLAT AFFECT, RESPIRATIONS EVEN AND UNLABORED. PT APPEARS FLUSHED, PRESENTS TREMORS, RESTLESSNESS, ANXIETY, AGITATION, IRRITABILITY, INCREASED EMOTIONAL AMPLITUDE WITH CRYING EPISODES, HOT/COLD FLASHES, HEADACHE, DIAPHORESIS, CLAMMY SKIN, INTERMITTENT CHILLS, SENSITIVITY TO LIGHT AND LOWER BACK PAIN 5/10.
[2018-03-31 08:11] VITALS: BP 91/61
[2018-03-31] MEDS: LORAZEPAM 1 MG TABLET PO SCH ×2 (08:46→20:21)
[2018-03-31] MEDS: MULTIVITAMINS,THERAPEUTIC TABLET PO SCH (08:47)
[2018-03-31] MEDS: THIAMINE HCL 100 MG TABLET PO SCH (08:47)
[2018-03-31] MEDS: FOLIC ACID 1 MG TABLET PO SCH (08:47)
[2018-03-31] MEDS: IBUPROFEN 600 MG TABLET PO PRN (08:47)
--- NOTE | 2018-03-31 08:47 | NUR ---
PRN IBUPROFEN 600 MG PO PRN GIVEN FOR C/O LOWER BACK ACHE 5/10 PAIN. WILL MONITOR AND REASSESS.
--- NOTE | 2018-03-31 09:47 | NUR ---
REASSESSMENT PT REPORTS IBUPROFEN WAS EFFECTIVE IN DECREASING HER LOWER BACK PAIN NOW 11/28. SAFETY MEASURES IN PLACE. WILL CONTINUE TO MONITOR.
[2018-03-31 12:00] VITALS: BP 96/61
--- NOTE | 2018-03-31 12:00 | NUR ---
CIWA ASSESSMENT 1200 CIWA 15. PT HAS BEEN ISOLATIVE IN HER ROOM, AND DOES NOT ATTEND GROUPS. CONTINUES TO HAVE ANXIETY, IRRITABILITY, AGITATION, RESTLESSNESS, SWEATING, FLUSHING, TREMORS, HEADACHE, INTERMITTENT COLD/HOT FLASHES, AND NUMBNESS AND TINGLING IN HANDS AND FEET. PT STATES HER ANXIETY SEEMS TO BE WORSE TODAY.
[2018-03-31 16:00] VITALS: BP 101/64
--- NOTE | 2018-03-31 16:00 | NUR ---
CIWA ASSESSMENT 1600 CIWA 15. PT HAS BEEN ISOLATIVE IN ROOM ONLY TO COME OUT TO GET A DRINK. PT CONTINUES TO HAVE HIGH ANXIETY, IRRITABILITY, AGITATION, RESTLESSNESS, FLUSHING, COLD/HOT FLASHES, SWEATING, TREMORS, HEADACHE, AND NUMBNESS AND TINGLING IN HANDS AND FEET.
--- NOTE | 2018-03-31 18:42 | NUR ---
END OF SHIFT LAST CIWA 15 @1600. PT HAS BEEN ISOLATIVE IN ROOM WITH INCREASE IN EMOTIONAL AMPLITUDE AND ANXIETY. PT HAS BEEN GIVEN IBUPROFEN PRN FOR C/O LOWER BACK PAIN AND WAS EFFECTIVE. PT STATES SHE WORRIES ABOUT WHAT SHE WILL DO WHEN SHE GOES BACK HOME DUE TO HER ALSO USING ETOH. PT ATE 100/50/75% OF MEALS. FLUID INTAKE 1355ML, VOIDED X4, BM 0. SAFETY MEASURES IN PLACE. WILL GIVE ENDORSEMENT TO PRODUCTION MECHANIC TIN C[employer].
--- NOTE | 2018-03-31 19:10 | NUR ---
Start of Shift Patient Received. Patient is noted in her room, awake, alert and verbally responsive. Patient states "I was going to go to the group panel but the panel cancelled." Patient also discussed wanting to receive a sleeping aid and states "I did not sleep well at all last night." Explained to patient that medications would be reviewed. Per endorsement, patient has completed a 5 day Ativan taper. She has been isolative to room and non compliant with group and social activities. Patient is noted to be emotionally labile. PRN Motrin administered with medication noted to be effective. Lipase noted to be elevated with MD aware with no new orders. All needs attended to promptly. Will continue plan of care as ordered. Addendum: 03/31/18 at 1957 by TERENCE GUPTA LVN Last noted CICARLOS ENRIQUE 15.
[2018-03-31 20:19] VITALS: BP 102/61
[2018-03-31] MEDS: diphenhydrAMINE 50 MG CAPSULE PO PRN (20:21)
--- NOTE | 2018-03-31 20:28 | NUR ---
PRN medication Administration Patient is noted verbalizing inability of falling asleep and staying asleep throughout the night. PRN Benadryl administered with routine order of Ativan 1mg. Will continue to monitor.
--- NOTE | 2018-03-31 21:30 | NUR ---
PRN Medication Reassessment Patient is noted in bed sleeping. Breathing even and non labored. Patient was given PRN Benadryl with medication noted to be effective. No restlessness or discomfort noted. Will continue to monitor.
[2018-04-01 00:15] VITALS: BP 97/57
[2018-04-01 04:10] VITALS: BP 100/61
--- NOTE | 2018-04-01 07:29 | NUR ---
End of Shift Patient is in bed sleeping. Breathing even and non labored. Breathing even and non labored. Patient has completed a 5 day Ativan taper. she continues to be isolative to room and non compliant with social activities. Patient received PRN Benadryl with medication noted to be effective. Last noted CIWA 11. Patient noted to sleep 8 hours. All needs attended to promptly. Will endorse to continue plan of care as ordered.
--- NOTE | 2018-04-01 07:40 | NUR ---
START OF SHIFT Pt is a 57 yr old female, AA&Ox4. Pt was admitted on 03/26/18 for ETOH withdrawal and is on 5 day Ativan taper as ordered. Received report from fast food shift supervisor nurse. No PRN's were given during the night. Last CIWA score was 11. pt slept for 8 hrs. Pt is currently c/o anxiety and stated she feels restless. Skin is intact, warm and moist to touch. No SI/HI noted. Safety precautions observed. call light is within reach. Will continue to monitor.
[2018-04-01 08:07] VITALS: BP 109/64
[2018-04-01] MEDS: THIAMINE HCL 100 MG TABLET PO SCH (08:41)
[2018-04-01] MEDS: FOLIC ACID 1 MG TABLET PO SCH (08:41)
[2018-04-01] MEDS: MULTIVITAMINS,THERAPEUTIC TABLET PO SCH (08:41)
[2018-04-01] MEDS: CLONIDINE HCL 0.1 MG TABLET PO PRN (08:41)
--- NOTE | 2018-04-01 08:43 | NUR ---
PRN GIVEN Pt c/o increase anxiety. Pt is noted tensed. Clonidine 0.1mg PO PRN and Vistaril 25mg PO PRN was given for anxiety. Will continue to monitor.
--- NOTE | 2018-04-01 09:43 | NUR ---
PRN RE-ASSESSMENT Clonidine 0.1mg PO PRN and Vistaril 25mg PO PRN was effective. Pt continues to c/o anxiety but is able to cope with anxiety level. Will continue to monitor.
[2018-04-01 12:00] VITALS: BP 94/53
[2018-04-01 16:00] VITALS: BP 107/62
[2018-04-01] MEDS: MIRALAX 17 GM POWD.PACK PO PRN (16:41)
--- NOTE | 2018-04-01 16:41 | NUR ---
PRN Miralax 17mg PO administered for constipation. Encourage client to increase PO fluid and mobility as tolerated to facilitate a bowel movement. Primary nurse to reassess.
--- NOTE | 2018-04-01 19:05 | NUR ---
END OF SHIFT Pt is a 57 yr old female, AA&Ox4. Pt was admitted on 03/26/18 for ETOH withdrawal and has completed a 5 day Ativan taper as ordered. Pt has been cooperative with medication regimen and plan of care. Pt has been observed attending group therapy. Pt was c/o increase anxiety, agitation, chills and headache during the day. Pt received Clonidine 0.1mg PO PRN and Vistaril 25mg PO PRN during the day. Medication was effective. Pt also c/o constipation during the day and Miralax 17gm PO PRN was given as ordered. No BM was reported. Pt is [facility] be [facility]. Pt states of maintain a sober lifestyle. Last CIWA score was 6 at 1600. Pt was encouraged increase fluid intake for hydration. Safety precautions observed. Call light is within reach. Endorsed to night club manager nurse to continue with care.
--- NOTE | 2018-04-01 19:10 | NUR ---
Start of Shift Patient Received. Patient is noted in her room, awake, alert and verbally responsive. Breathing even and non labored. Per endorsement, patient has completed a 5 day Ativan taper and is set for discharge tomorrow 04/02/18. PRN Clonidine and Miralax administered with clonidine noted to be effective. Will continue to monitor for any relief with PRN Miralax. Last noted CIWA 6. All needs attended to promptly. Will continue plan of care as ordered.
[2018-04-01 20:24] VITALS: BP 103/59
[2018-04-01] MEDS: diphenhydrAMINE 50 MG CAPSULE PO PRN (20:31)
--- NOTE | 2018-04-01 20:41 | NUR ---
PRN Medication Administration Patient is noted verbalizing inability of falling asleep. PRN Benadryl administered. Will continue to monitor.
--- NOTE | 2018-04-01 21:40 | NUR ---
PRN Medication Reassessment Patient is noted in bed sleeping. Breathing even and non labored. No signs of restlessness or discomfort noted. PRN Benadryl noted to be effective. Will continue to monitor.
[2018-04-02] MEDS ORDERED: DIPH50CA37 PO (00:26)
[2018-04-02] MEDS ORDERED: HYDR-3895 PO (00:26)
[2018-04-02 00:28] VITALS: BP 98/53
[2018-04-02 04:25] VITALS: BP 97/50
--- NOTE | 2018-04-02 07:19 | NUR ---
End of Shift Patient is in bed sleeping. Breathing even and non labored. Patient has completed a 5 day Ativan taper and is set for discharge today 04/02/18 to Breathe. She was given PRN Benadryl for inability of falling asleep with medication noted to be effective. Patient noted to sleep a total of 8 hours. Last noted CIWA 7. All needs attended to promptly. Will continue plan of care as ordered.
--- NOTE | 2018-04-02 07:30 | NUR ---
Start of Shift Advertisement Compositor received report on 57 year old female admitted to [facility] on 03/26/18 for medical management of ETOH withdrawals. Pt endorses NKA, full code and regular diet. Denies any significant medical history, with a PPH of Anxiety and Depression. Pt has completed an Ativan taper and is scheduled for discharge this am. Pts last recorded CIWA 7, per NOC report. Pt was administered Benadryl(insomnia) on NOC, per report. Advertisement Compositor encounters pt in pts room. Pt is anxious about discharge and states, I hardly slept last night. Pt has a normal affect with congruent mood. A/O x4 and makes needs known. Linear thought process and clear speech pattern. Bed in low position with wheels locked and side rails up x2. Will continue to monitor, support and encourage according to plan of care.
[2018-04-02] MEDS: THIAMINE HCL 100 MG TABLET PO SCH (08:10)
[2018-04-02] MEDS: MULTIVITAMINS,THERAPEUTIC TABLET PO SCH (08:10)
[2018-04-02] MEDS: FOLIC ACID 1 MG TABLET PO SCH (08:10)
[2018-04-02 08:38] VITALS: BP 121/65
--- NOTE | 2018-04-02 09:40 | NUR ---
Discharge Pt educated on discharge material, including educational material related to discharge diagnosis and medication education. Pt provided with discharge prescriptions and copies of all paperwork. Pt had personal belongings returned and signed for. Pt with no home medications to return. Pt is anxious, and exited regarding her "next step in life." Pt is cooperative with a normal affect and congruent mood. A/O x4 with a linear thought process and clear speech pattern. Pt transported to [facility] by private car.
== END 2018-04-02 09:40 | disposition other institution (70) | DRG 895 ==
LOC: SRC 17:47
PROVIDERS: ADMIT Family Medicine Addiction Medicine; ATTEND Family Medicine Addiction Medicine
PROC: HZ2ZZZZ Detoxification Services for Substance Abuse Treatment (ICD-10-PCS; principal; 2018-03-26)
PROC: HZ41ZZZ Group Counseling for Substance Abuse Treatment, Behavioral (ICD-10-PCS; 2018-03-31)
DX: F10.239 Alcohol dependence with withdrawal, unspecified (principal); K85.20 Alcohol induced acute pancreatitis without necrosis or infection; Y90.8 Blood alcohol level of 240 mg/100 ml or more; F10.280 Alcohol dependence with alcohol-induced anxiety disorder; K59.00 Constipation, unspecified
CPT/HCPCS: 36415; 70030-TC; 80307; 83690; 83735; 84443; 84703; 85025; 86580; 86592; 86704; 86705; 86706; 86803; 87340; 87806; G0480; J2405; Q0162; Q0163